=== PATIENT | female | born 1985 | race African-American/Black ===

== ENCOUNTER 2023-04-27 14:16 | Outpatient (CLI) | payer OTHER | END 2023-04-27 14:17 | disposition home or self-care (01) | LOC: CSHULT 14:16 | PROVIDERS: ATTEND Student in an Organized Health Care Education/Training Program | DX: E28.2 Polycystic ovarian syndrome (principal); N83.201 Unspecified ovarian cyst, right side | CPT/HCPCS: 76856 ==